=== PATIENT | male | born 1950 | race Caucasian/White ===

== ENCOUNTER 2023-06-07 07:41 | Outpatient (CLI) | payer OTHER, SELFPAY | END 2023-06-07 07:42 | disposition home or self-care (01) | PROVIDERS: Visit Provider Family Medicine | DX: M54.16 Radiculopathy, lumbar region (principal); M51.36 Other intervertebral disc degeneration, lumbar region | CPT/HCPCS: 62323; J1100; Q9966 ==

== ENCOUNTER 2023-12-27 09:59 | Outpatient (CLI) | payer OTHER, SELFPAY | END 2023-12-27 10:00 | disposition home or self-care (01) | PROVIDERS: Visit Provider Family Medicine | DX: M51.36 Other intervertebral disc degeneration, lumbar region (principal); M54.16 Radiculopathy, lumbar region | CPT/HCPCS: 62323; J0702; Q9966 ==